=== PATIENT | female | born 1975 | race Caucasian/White ===

== ENCOUNTER 2018-12-25 16:36 | Emergency (ER) | payer OTHER ==
[~2018-12-25] VITALS: Ht 162.6 cm; Wt 79.5 kg
[2018-12-25] MEDS ORDERED: CRAN500C7 PO (17:06)
[2018-12-25] MEDS ORDERED: MULT-90 PO (17:06)
--- NOTE | 2018-12-25 17:09 | NUR ---
DR. MONTOYA AT BEDSIDE.
--- NOTE | 2018-12-25 18:48 | NUR ---
NOTIFIED DR. MONTOYA THAT PATIENT HAS A HEADACHE AND THAT HER PAIN HAS INCREASED. ORDER GIVEN FOR MOTRIN.
[2018-12-25] MEDS ORDERED: IBUPROFEN 200 MG TABLET ONE (18:51)
--- NOTE | 2018-12-25 18:57 | NUR ---
MOTRIN GIVEN FOR PAIN CONTROL. DR. MONTOYA AT BEDSIDE.
[2018-12-25] MEDS ORDERED: IBUPROFEN 200 MG TABLET PO ONE (19:00)
--- NOTE | 2018-12-25 19:09 | NUR ---
[facility] HAND-OFF REPORT TO IRVING MANZANARES.
--- NOTE | 2018-12-25 19:16 | NUR ---
GIVEN DC INSTRUCTION PT UNDERSTOOD AFTER DR MONTOYA GIVEN POC PT UP AMBULATED TO CHECK OUT VSS STABLE
[2018-12-25 19:17] VITALS: BP 104/69
== END 2018-12-25 19:19 | disposition home or self-care (01) ==
LOC: ED 19:06
DX: S29.012A Strain of muscle and tendon of back wall of thorax, initial encounter (principal); S20.211A Contusion of right front wall of thorax, initial encounter; S80.11XA Contusion of right lower leg, initial encounter; R42 Dizziness and giddiness; W19.XXXA Unspecified fall, initial encounter; Y93.89 Activity, other specified; Y92.89 Other specified places as the place of occurrence of the external cause; Y99.8 Other external cause status
CPT/HCPCS: 93005; 99283